=== PATIENT | female | born 1980 | race Caucasian/White ===

== ENCOUNTER 2017-10-10 08:03 | Day surgery (SDC) | payer OTHER ==
[~2017-10-10 08:03] MED LIST: LIDOCAINE 1% PF 2 ML VIAL. ID; MORPHINE SULFATE 2 MG/ML DISP.SYRIN. IV; ONDANSETRON PF 4 MG/2 ML VIAL. IV; fentaNYL PF VIAL 100 MCG/2 ML VIAL IV
[2017-10-10] MEDS: IV RINGERS,LACTATED 1000ML 1,000 ML IV (08:49)
[2017-10-10] MEDS ORDERED: PROPOFOL 20 ML IV (08:55)
[2017-10-10] MEDS ORDERED: LIDOCAINE 2% PF Vial for OR 5 ML VIAL. (08:55)
[2017-10-10] MEDS ORDERED: ONDANSETRON PF 4 MG/2 ML VIAL. (08:55)
[2017-10-10] MEDS ORDERED: DEXAMETHASONE SOD PHOS 20 MG/5 ML VIAL. (08:55)
[2017-10-10] MEDS ORDERED: MIDAZOLAM HCL/PF 2 MG/2 ML VIAL. (08:56)
[2017-10-10] MEDS ORDERED: fentaNYL PF VIAL 100 MCG/2 ML VIAL (08:56)
[2017-10-10 08:59] LABS: POC GLUCOSE 128 mg/dL (70-99)
[2017-10-10 09:30] LABS: NEG OBC UR NEG; POS OBC UR POS; U PREG PATIENT NEGATIVE (NEG)
[2017-10-10] MEDS: BUPIVACAINE 0.5% 50 ML VIAL. (11:00)
[2017-10-10] MEDS ORDERED: SEVOFLURANE 31 TO 60 MINUTES. IH (11:23)
[2017-10-10] MEDS: fentaNYL PF VIAL 100 MCG/2 ML VIAL IV (11:54)
[2017-10-10] MEDS: PROCHLORPERAZINE 10 MG/2 ML VIAL. IV (11:54)
[2017-10-10] MEDS: MORPHINE SULFATE 4 MG/ML DISP.SYRIN. IV (12:07)
[2017-10-10] MEDS: HYDROcodone/APAP 7.5/325MG 1 TAB TABLET PO (12:25)
== END 2017-10-10 13:14 | disposition home or self-care (01) ==
LOC: SURG 08:03
DX: G56.03 Carpal tunnel syndrome, bilateral upper limbs (principal); F32.9 Major depressive disorder, single episode, unspecified; F41.9 Anxiety disorder, unspecified; F31.9 Bipolar disorder, unspecified; Z87.440 Personal history of urinary (tract) infections; Z87.891 Personal history of nicotine dependence; Z86.19 Personal history of other infectious and parasitic diseases; E11.9 Type 2 diabetes mellitus without complications; E66.9 Obesity, unspecified; Z98.51 Tubal ligation status; Z68.29 Body mass index [BMI] 29.0-29.9, adult; F10.99 Alcohol use, unspecified with unspecified alcohol-induced disorder
CPT/HCPCS: 64721; 81025; 82962; C1769; J0690; J0780; J1100; J2250; J2270; J2405; J2704; J3010; J3490; J7120

== ENCOUNTER 2018-07-05 11:47 | Emergency (ER) | payer BC, OTHER ==
[~2018-07-05] VITALS: Ht 162.6 cm; Wt 63.5 kg
[~2018-07-05 11:47] MED LIST changes: +DICL75TA PO; +HYDR-3164 PO; +HYDR-3165 PO; -LIDOCAINE 1% PF 2 ML VIAL. ID; +METF500T16 PO; +METR500T PO; +MIRT15TA3 PO; -MORPHINE SULFATE 2 MG/ML DISP.SYRIN. IV; -ONDANSETRON PF 4 MG/2 ML VIAL. IV; +PRAZ1CAP2 PO; +PRED50TA PO; +SITA100T PO; +TRAZ-85 PO; +VALIUM10 MG PO; +VENL150C PO; +VENL150C6 PO; +VENL225T PO; +[UNRECOGNIZED DRUG - CODE] PO; -fentaNYL PF VIAL 100 MCG/2 ML VIAL IV
[2018-07-05 11:50] VITALS: BP 112/56
[2018-07-05] MEDS ORDERED: IV NORMAL SALINE 1000ML BAG 1,000 ML IV ONE (12:30)
[2018-07-05 12:35] LABS: BILIRUBIN,URINE NEGATIVE (NEG); CLARITY,URINE CLOUDY; COLOR,URINE YELLOW; NITRITE,URINE NEGATIVE (NEG); PH,URINE 5.5; PROTEIN,URINE NEGATIVE (NEG-TRACE); UROBILINOGEN,URINE 0.2 mg/dL (0.2 mg/dL)
[2018-07-05 12:52] LABS: BACTERIA,URINE MODERATE /HPF (0-FEW); RBC,URINE OCC /HPF (0-2); SQUAMOUS EPITHELIAL CELL,UR MANY /LPF
[2018-07-05 12:52] LABS: BASO % 0 % (0-3); EOS % 0 % (0-3); HEMATOCRIT 40.7 % (36.0-47.0); HEMOGLOBIN 14.1 g/dL (12.0-15.5); LYMPH % 42 % (24-48); MEAN CORPUSCULAR HEMOGLOBIN 32 pg (25-35); MEAN CORPUSCULAR HGB CONC 35 g/dL (31-37); MEAN CORPUSCULAR VOLUME 93 fL (79-100); MONO # 0.4 x10^3/uL (0.0-1.1); MONO % 8 % (0-9); NEUT # 2.4 x10^3uL (1.8-7.7); NEUT % 50 % (31-73); PLATELET COUNT 232 x10^3/uL (140-400); RED BLOOD COUNT 4.37 x10^6/uL (3.50-5.40); RED CELL DISTRIBUTION WIDTH 13.1 % (11.5-14.5); WHITE BLOOD COUNT 4.7 x10^3/uL (4.0-11.0)
--- NOTE | 2018-07-05 12:57 | RAD ---
Chest, 2 views, 07/05/2018: HISTORY: Worsening cough and chest pain Comparison is made to a study from 04/17/2014. The heart size and pulmonary vascularity are normal. A calcified granuloma is present in the left upper lobe. No acute infiltrate is seen. There is no evidence of pleural fluid. Mild spurring is present in the spine. IMPRESSION: No acute cardiopulmonary abnormality is detected. Electronically signed by: Steven Martínez MD (07/05/2018 12:53 PM) [facility]
[2018-07-05 13:06] LABS: CALCIUM 8.7 mg/dL (8.5-10.1); CREATININE 0.9 mg/dL (0.6-1.0); GFR 70.5; POTASSIUM 3.8 mmol/L (3.5-5.1)
[2018-07-05 13:12] LABS: ALBUMIN 3.5 g/dL (3.4-5.0); TOTAL BILIRUBIN 0.1 mg/dL (0.2-1.0)
--- NOTE | 2018-07-05 13:15 | PHYS DOC ---
Past Medical History Past Medical History: Anxiety, Bipolar, Bronchitis, Depression, Diabetes-Type II, Other Additional Past Medical Histor: HEP C, CIRRHOSIS,PTSD Past Surgical History: Tubal ligation, Other Additional Past Surgical Histo: SWEAT GLAND REMOVAL BILAT AXILA,CTR BILAT, LIVER BIOPSY, Alcohol Use: Sober Drug Use: Marijuana Adult General Chief Complaint Chief Complaint: MULTIPLE COMPLAINTS HPI HPI 8-year-old female presents to ER via POV with multiple medical complaints which is been ongoing. She reports for the past 2 weeks she has had productive cough with mid chest pain intermittently. Patient states she has been coughing up brown sputum denying any fever or chills. Patient reports she has had intermittent dizziness since onset of symptoms 2 weeks ago. Patient reports she has had intermittent shortness of air denies any swelling in extremities. Patient reports she's had intermittent nausea for the past year denies any acute change or vomiting diarrhea episodes. Patient reports she is a smoker of marijuana denies cigarette use. Patient's LMP was 06/25/18. Patient reports she is type II diabetic however has been off of medications due to weight loss she does not check her blood sugar but reports she has had increased thirst. Patient denies any urinary symptoms or change in urinary pattern. Patient denies previous cardiac history. Review of Systems Review of Systems Constitutional: Denies fever or chills [] Eyes: Denies change in visual acuity, redness, or eye pain [] HENT: Denies nasal congestion or sore throat [] Respiratory: Denies cough or shortness of breath [] Cardiovascular: No additional information not addressed in HPI [] GI: Denies abdominal pain, nausea, vomiting, bloody stools or diarrhea [] : Denies dysuria or hematuria [] Musculoskeletal: Denies back pain or joint pain [] Integument: Denies rash or skin lesions [] Neurologic: Denies headache, focal weakness or sensory changes [] Endocrine: Denies polyuria or polydipsia [] All other systems were reviewed and found to be within normal limits, except as documented in this note. Current Medications Current Medications Current Medications Medications (Trade) Dose Ordered Sig/Edin Start Time Stop Time Status Last Admin Dose Admin Azithromycin (Zithromax) 1,000 mg 1X ONCE 07/05/18 13:45 07/05/18 13:46 DC 07/05/18 13:55 1,000 MG Ceftriaxone Sodium (Rocephin Im) 250 mg 1X ONCE 07/05/18 13:45 07/05/18 13:46 DC 07/05/18 13:56 250 MG Prednisone (Prednisone) 40 mg 1X ONCE 07/05/18 13:30 07/05/18 13:31 DC 07/05/18 13:55 40 MG Sodium Chloride 1,000 ml @ 1,000 mls/hr 1X ONCE 07/05/18 12:30 07/05/18 13:29 DC 07/05/18 12:41 1,000 MLS/HR Allergies Allergies Allergies Coded Allergies Type Severity Reaction Last Updated Verified No Known Drug Allergies 10/10/17 No Physical Exam Physical Exam Constitutional: Well developed, well nourished, no acute distress, non-toxic appearance. [] HENT: Normocephalic, atraumatic, bilateral external ears normal, oropharynx moist, no oral exudates, nose normal. [] Eyes: PERRLA, EOMI, conjunctiva normal, no discharge. [] Neck: Normal range of motion, no tenderness, supple, no stridor. [] Cardiovascular:Heart rate regular rhythm, no murmur [] Lungs & Thorax: Bilateral breath sounds clear to auscultation [] Abdomen: Bowel sounds normal, soft, no tenderness, no masses, no pulsatile masses. [] Skin: Warm, dry, no erythema, no rash. [] Back: No tenderness, no CVA tenderness. [] Extremities: No tenderness, no cyanosis, no clubbing, ROM intact, no edema. [] Neurologic: Alert and oriented X 3, normal motor function, normal sensory function, no focal deficits noted. [] Psychologic: Affect normal, judgement normal, mood normal. [] Current Patient Data Vital Signs Vital Signs Date Time Temp Pulse Resp B/P (MAP) Pulse Ox O2 Delivery O2 Flow Rate FiO2 07/05/18 11:50 98.0 81 16 112/56 (74) 98 Room Air 98.0 Lab Values Laboratory Tests Test 07/05/18 12:05 07/05/18 12:08 07/05/18 12:36 07/05/18 12:40 POC Urine HCG, Qualitative Hcg negative (Negative) Urine Collection Type Unknown Urine Color Yellow Urine Clarity Cloudy Urine pH 5.5 Urine Specific [place] 1.025 Urine Protein Negative mg/dL (NEG-TRACE) Urine Glucose (UA) Negative mg/dL (NEG) Urine Ketones (Stick) Negative mg/dL (NEG) Urine Blood Negative (NEG) Urine Nitrite Negative (NEG) Urine Bilirubin Negative (NEG) Urine Urobilinogen Dipstick 0.2 mg/dL (0.2 mg/dL) Urine Leukocyte Esterase Negative (NEG) Urine RBC Occ /HPF (0-2) Urine WBC 5-10 /HPF (0-4) Urine Squamous Epithelial Cells Many /LPF Urine Bacteria Moderate /HPF (0-FEW) Urine Mucus Mod /LPF Glucose (Fingerstick) 141 mg/dL (70-99) H White Blood Count 4.7 x10^3/uL (4.0-11.0) Red Blood Count 4.37 x10^6/uL (3.50-5.40) Hemoglobin 14.1 g/dL (12.0-15.5) Hematocrit 40.7 % (36.0-47.0) Mean Corpuscular Volume 93 fL (79-100) Mean Corpuscular Hemoglobin 32 pg (25-35) Mean Corpuscular Hemoglobin Concent 35 g/dL (31-37) Red Cell Distribution Width 13.1 % (11.5-14.5) Platelet Count 232 x10^3/uL (140-400) Neutrophils (%) (Auto) 50 % (31-73) Lymphocytes (%) (Auto) 42 % (24-48) Monocytes (%) (Auto) 8 % (0-9) Eosinophils (%) (Auto) 0 % (0-3) Basophils (%) (Auto) 0 % (0-3) Neutrophils # (Auto) 2.4 x10^3uL (1.8-7.7) Lymphocytes # (Auto) 2.0 x10^3/uL (1.0-4.8) Monocytes # (Auto) 0.4 x10^3/uL (0.0-1.1) Eosinophils # (Auto) 0.0 x10^3/uL (0.0-0.7) Basophils # (Auto) 0.0 x10^3/uL (0.0-0.2) Sodium Level 140 mmol/L (136-145) Potassium Level 3.8 mmol/L (3.5-5.1) Chloride Level 106 mmol/L (98-107) Carbon Dioxide Level 25 mmol/L (21-32) Anion Gap 9 (6-14) Blood Urea Nitrogen 17 mg/dL (7-20) Creatinine 0.9 mg/dL (0.6-1.0) Estimated GFR (Cockcroft-Gault) 70.5 BUN/Creatinine Ratio 19 (6-20) Glucose Level 124 mg/dL (70-99) H Calcium Level 8.7 mg/dL (8.5-10.1) Total Bilirubin 0.1 mg/dL (0.2-1.0) L Aspartate Amino Transferase (AST) 11 U/L (15-37) L Alanine Aminotransferase (ALT) 18 U/L (14-59) Alkaline Phosphatase 52 U/L (46-116) Troponin I Quantitative < 0.017 ng/mL (0.000-0.055) Total Protein 7.0 g/dL (6.4-8.2) Albumin 3.5 g/dL (3.4-5.0) Albumin/Globulin Ratio 1.0 (1.0-1.7) Laboratory Tests 07/05/18 12:40 Laboratory Tests 07/05/18 12:40 Microbiology 07/05/18 Wet Prep - Final, Complete EKG EKG EKG obtained 07/05/18 at [address] Lyman Sinus Rhythm Rate 64 No STEMI Radiology/Procedures Radiology/Procedures Pelvic Exam: RN Party Plan Sales Consultant present 1330 Abdomen: External Genitalia: Normal Skin-no rash or lesions Speculum: Bimanual: No adnexal masses, + CMT PROCEDURE: CHEST PA & LATERAL Chest, 2 views, 07/05/2018: HISTORY: Worsening cough and chest pain Comparison is made to a study from 04/17/2014. The heart size and pulmonary vascularity are normal. A calcified granuloma is present in the left upper lobe. No acute infiltrate is seen. There is no evidence of pleural fluid. Mild spurring is present in the spine. IMPRESSION: No acute cardiopulmonary abnormality is detected. Electronically signed by: Steven Martínez MD (07/05/2018 12:53 PM) [facility] DICTATED and SIGNED BY: STEVEN MARTÍNEZ MD DATE: 07/05/18 1252 Course & Med Decision Making Course & Med Decision Making Pertinent Labs and Imaging studies reviewed. (See chart for details) [] Dragon Disclaimer Dragon Disclaimer This electronic medical record was generated, in whole or in part, using a voice recognition dictation system. Departure Departure Impression: Primary Impression: Bacterial vaginosis Additional Impressions: Bronchitis Pelvic inflammatory disease Disposition: 01 HOME, SELF-CARE Condition: STABLE Referrals: NO PCP (PCP) Patient Instructions: Bacterial Vaginosis, Bronchiolitis-Brief, Pelvic Inflammatory Disease, Safe Sex, Smoking Cessation Additional Instructions: Use condoms until you are rechecked after antibiotic use to make sure infection is gone completely. Avoid smoking. Drink plenty of water. Tylenol and/or ibuprofen as needed for pain as directed on container. Scripts Prednisone (PREDNISONE) 20 Mg Tablet 40 MG PO DAILY, #8 TAB 0 Refills Start on 07/06/18 Prov: WALT DEL TORO APRN 07/05/18 Doxycycline Monohydrate (DOXYCYCLINE MONOHYDRATE) 100 Mg Capsule 1 CAP PO BID, #20 CAP 0 Refills Prov: WALT DEL TORO APRN 07/05/18 Metronidazole (FLAGYL) 500 Mg Tablet 1 TAB PO BID, #14 TAB 0 Refills No alcohol intake while taking this medication and for 3 days after completion Prov: WALT DEL TORO APRN 07/05/18 Problem Qualifiers WALT DEL TORO APRN Jul 05, 2018 13:15
--- NOTE | 2018-07-05 13:22 | EKG ---
[facility] [address] [place] [id number] Test Date: 2018-07-05 Test Time: 12:55:40 Pat Name: SARAH SARMIENTO Department: Room: Gender: F V Belt Skiver: : 1980 Requested By: WALT DEL TORO Order Number: [id number] Reading MD: William Miranda MD Measurements Intervals [place] Rate: 64 P: 47 [place]: 166 QRS: 37 QRSD: 84 T: 24 QT: 380 QTc: 392 Interpretive Statements SINUS RHYTHM Electronically Signed On 07-09-2018 8:33:55 ICT DEVELOPMENT MANAGER by William Miranda MD
[2018-07-05] MEDS ORDERED: predniSONE 10 MG TABLET PO ONE (13:30)
[2018-07-05] MEDS ORDERED: cefTRIAXone IM 250 MG VIAL IM ONE (13:45)
[2018-07-05] MEDS ORDERED: AZITHROMYCIN 250 MG TABLET. PO ONE (13:45)
[2018-07-05] MEDS ORDERED: METR500T PO (14:12)
[2018-07-05] MEDS ORDERED: DOXY100C14 PO (14:12)
[2018-07-05] MEDS ORDERED: PRED20TA PO (14:16)
[2018-07-06 21:11] LABS: GC PROBE Negative (Negative)
== END 2018-07-05 14:20 | disposition home or self-care (01) ==
LOC: ER 11:47
DX: J40 Bronchitis, not specified as acute or chronic (principal); N76.0 Acute vaginitis; B96.89 Other specified bacterial agents as the cause of diseases classified elsewhere; N73.8 Other specified female pelvic inflammatory diseases; R07.89 Other chest pain; R63.1 Polydipsia; R42 Dizziness and giddiness; F12.20 Cannabis dependence, uncomplicated; R63.4 Abnormal weight loss; F41.9 Anxiety disorder, unspecified; F31.9 Bipolar disorder, unspecified; E11.9 Type 2 diabetes mellitus without complications; Z98.51 Tubal ligation status
CPT/HCPCS: 36415; 71046; 80053; 81001; 81025; 82962; 84484; 85025; 87086; 87186; 87491; 87591; 93005; 96360; 96372; 99284; J0696; J7030; J7512; Q0111; Q0144